=== PATIENT | female | born 1970 | race Two or more races ===

== ENCOUNTER 2022-05-17 05:06 | Emergency (ER) | payer OTHER ==
[~2022-05-17] VITALS: Ht 157.5 cm; Wt 64.9 kg
[2022-05-17] MEDS ORDERED: EFFEXOR XR150 MG PO (05:20)
[2022-05-17] MEDS ORDERED: HORIZANT300 MG PO (05:20)
[2022-05-17] MEDS ORDERED: EFFEXOR XR37.5 MG PO (05:20)
[2022-05-17] MEDS ORDERED: TIZANIDINE HCL4 MG PO (05:21)
[2022-05-17] MEDS ORDERED: KETO10TA2 PO (07:22)
== END 2022-05-17 08:03 ==
LOC: ER 05:06
DX: S82.61XA Displaced fracture of lateral malleolus of right fibula, initial encounter for closed fracture (principal); X50.9XXA Other and unspecified overexertion or strenuous movements or postures, initial encounter; Y93.9 Activity, unspecified; Y92.9 Unspecified place or not applicable; F41.9 Anxiety disorder, unspecified